=== PATIENT | female | born 1990 | race Caucasian/White ===

== ENCOUNTER → 2018-06-15 | Outpatient (CLI) | payer BC, OTHER ==
[~2018-06-15] MED LIST: BIRTH CONRTOL; CPR500T PO
== END ==
LOC: CARD 12:11
PROVIDERS: ATTEND Nurse Practitioner Family
DX: R00.2 Palpitations (principal)
CPT/HCPCS: 93005

== ENCOUNTER → 2018-06-18 | Outpatient (CLI) | payer BC, OTHER | LOC: CARD 07:53 | PROVIDERS: ATTEND Nurse Practitioner Family | DX: R00.2 Palpitations (principal) | CPT/HCPCS: 93225; 93226 ==